=== PATIENT | female | born 2000 | race Caucasian/White ===

== ENCOUNTER → 2024-03-12 18:55 | Outpatient (REF) | payer BC, SELFPAY | LOC: MRI 18:55 | PROVIDERS: ATTENDING PHYSICIAN Registered Nurse | DX: G25.81 Restless legs syndrome (principal); R25.9 Unspecified abnormal involuntary movements; R51.9 Headache, unspecified | CPT/HCPCS: 70553; A9575 ==

== ENCOUNTER → 2024-04-08 12:00 | Outpatient (REF) | payer BC, SELFPAY | LOC: DHSLP 12:00 | PROVIDERS: ATTENDING PHYSICIAN Psychiatry & Neurology Neurology; FAMILY PHYSICIAN Registered Nurse; OTHER PHYSICIAN Internal Medicine Critical Care Medicine | DX: G47.19 Other hypersomnia (principal); R06.83 Snoring | CPT/HCPCS: 95800 ==

== ENCOUNTER → 2024-04-10 13:07 | Outpatient (REF) | payer BC, SELFPAY | LOC: MRI 3T 13:07 | PROVIDERS: ATTENDING PHYSICIAN Psychiatry & Neurology Neurology; FAMILY PHYSICIAN Registered Nurse | DX: R25.1 Tremor, unspecified (principal); F95.9 Tic disorder, unspecified; R42 Dizziness and giddiness; G43.109 Migraine with aura, not intractable, without status migrainosus | CPT/HCPCS: 72156; A9575 ==

== ENCOUNTER → 2024-04-17 12:58 | Outpatient (REF) | payer BC, SELFPAY | LOC: MRI 3T 12:58 | PROVIDERS: ATTENDING PHYSICIAN Psychiatry & Neurology Neurology; FAMILY PHYSICIAN Registered Nurse | DX: R25.1 Tremor, unspecified (principal); F95.9 Tic disorder, unspecified; R42 Dizziness and giddiness; G43.109 Migraine with aura, not intractable, without status migrainosus | CPT/HCPCS: 72157; A9575 ==